=== PATIENT | male | born 1990 ===

== ENCOUNTER 2016-10-04 02:45 | Emergency (ER) | payer SELFPAY ==
[2016-10-04] MEDS: 0.9 % SODIUM CHLORIDE 1,000 ML IV ONE ×2 (02:55→03:43)
[2016-10-04 03:06] LABS: EOSINOPHILS % 2.2 % (0.0-6.8); MEAN CORPUSCULAR HEMOGLOBIN 29.9 pg (28.0-34.0); MEAN CORPUSCULAR VOLUME 89.4 fl (80.0-100.0); MONOCYTES % 2.9 % (0.0-11.0); NEUTROPHILS # 16.5 # k/uL (1.4-7.7)
[2016-10-04 03:07] LABS: BASOPHILS % 0.7 (0.0-1.5)
--- NOTE | 2016-10-04 03:16 | ED Physician Documentation ---
Overdose - HISTORIAN Historian: patient - HPI Chief Complaint: Overdose Onset: hours (0130) Further Comments: yes (26 year old male brought in via EMS after heroin overdose at approximately 0130. Friend called EMS due to patient not breathing. Patient given narcan in route.) - ROS CONST: none NEURO/PSYCH: none EYES/ENT: none CVS/RESP: none GI/: nausea, vomiting. denies: abdominal pain, problems urinating MS/SKIN/LYMPH: denies: joint pain, leg swelling, rash, swollen glands, ankle swelling, other - PAST HX Psychiatric problems: denies: bipolar disorder DVT/PE Risk Factors: none Surgical History: no surgical history Allergies/Adverse Reactions: Allergies Allergy/AdvReac Type Severity Reaction Status Date / Time No Known Allergies Allergy Verified 10/04/16 03:29 Home Medications: Ambulatory Orders Medication Instructions Recorded NK [NK] 10/04/16 - Social HX Smoking History: cigarettes Drug Use: heroin - Family HX Family HX: denies: other - REVIEWED ASSESSMENTS Nursing Assessment Reviewed: Yes Vitals Reviewed: Yes Progress - Progress Progress: On arrival patient obtunded, withdraws from painful stimuli ABG with Co2 66, patient more awake and alert. AAOx2, reoriented to place, MAEx4 , calm and cooperative. No neuro deficit noted. 0300 UDS not available at present, send out. PD at bedside. Patient reports snorting heroin, denies any other drug use, denies ETOH use. Reports being on probation for controlled substance possessions. From [place], in town working. [address] Jimenez at [facility], recommended 24 observation, will transfer to [facility]. Patient agrees with plan of care. - EKG/XRAY/CT EKG: rhythm (ST, rate 119) ED Results Lab/Radiology - Lab Results Lab Results: Lab Results 10/04/16 10/04/16 10/04/16 03:23 02:53 02:53 WBC RBC Hgb Hct MCV MCH MCHC RDW Plt Count Neut % (Auto) Lymph % (Auto) [place] % (Auto) Eos % (Auto) Baso % (Auto) Neut # (Auto) Lymph # (Auto) [place] # (Auto) Eos # (Auto) Baso # (Auto) Reactive Lymphs % Reactive Lymphs # Sodium Potassium Chloride Carbon Dioxide BUN Creatinine Est GFR ( Amer) Est GFR (Non-Af Amer) Glucose Calcium Total Bilirubin AST ALT Alkaline Phosphatase Creatine Kinase 81 U/L U/L (0-225) Troponin I 0.04 ng/mL ng/mL (0.03-0.06) Total Protein Albumin Acetaminophen < 10.0 ug/mL L ug/mL (10.0-30.0) Ethyl Alcohol 0.7 MG/DL MG/DL (<10.0) 10/04/16 10/04/16 02:51 02:51 WBC 20.45 K/ul H K/ul (4.00-12.00) RBC 5.33 M/ul H M/ul (3.90-5.20) Hgb 15.9 g/dL g/dL (12.0-18.0) Hct 47.7 % % (37.0-53.0) MCV 89.4 fl fl (80.0-100.0) MCH 29.9 pg pg (28.0-34.0) MCHC 33.5 g/dL g/dL (30.0-36.0) RDW 12.5 % % (11.3-14.3) Plt Count 313 K/mm3 K/mm3 (130-400) Neut % (Auto) 80.9 % H % (39.0-79.0) Lymph % (Auto) 12.8 % L % (16.0-50.0) [place] % (Auto) 2.9 % % (0.0-11.0) Eos % (Auto) 2.2 % % (0.0-6.8) Baso % (Auto) 0.7 (0.0-1.5) Neut # (Auto) 16.5 # k/uL H # k/uL (1.4-7.7) Lymph # (Auto) 2.6 # k/uL # k/uL (0.6-4.0) [place] # (Auto) 0.6 # k/uL # k/uL (0.0-0.9) Eos # (Auto) 0.5 # k/uL # k/uL (0.0-0.6) Baso # (Auto) 0.1 # k/uL # k/uL (0.0-0.5) Reactive Lymphs % 0.5 % % (0.0-5.0) Reactive Lymphs # 0.1 # k/uL # k/uL (0.0-0.8) Sodium 139 mmol/L mmol/L (136-145) Potassium 3.5 mmol/L mmol/L (3.5-5.0) Chloride 106 mmol/L mmol/L (98-110) Carbon Dioxide 26 mmol/L mmol/L (20-32) BUN 18 mg/dL mg/dL (10-26) Creatinine 1.3 mg/dL mg/dL (0.4-1.5) Est GFR ( Amer) > 60 (60 - ) Est GFR (Non-Af Amer) > 60 (60 - ) Glucose 244 mg/dL H mg/dL (70-99) Calcium 9.6 mg/dL mg/dL (8.5-10.5) Total Bilirubin 0.3 mg/dL mg/dL (0.2-1.2) AST 24 U/L U/L (0-41) ALT 44 U/L U/L (0-45) Alkaline Phosphatase 93 U/L U/L (46-116) Creatine Kinase Troponin I Total Protein 8.4 g/dL g/dL (6.0-8.5) Albumin 5.2 g/dL g/dL (3.0-5.5) Acetaminophen Ethyl Alcohol - Radiology Radiology Impressions: Chest - one-view Clinical history: Respiratory distress. Findings: Examination of the chest in single portable AP view 10/04/2016 0310 hours with no prior films for comparison demonstrates the lungs to be clear. The cardiovascular and mediastinal silhouettes are within normal limits. The bony thorax is intact. Impression: 1. Negative chest. Electronically signed on Oct 04, 2016 3:34:44 AM CDT by: Rico Loza - Orders Orders: ED Orders Category Date Time Status Place IV Lock 1T Care 10/04/16 02:54 Active CHEST 1 VIEW [RAD] Stat Exams 10/04/16 03:05 Completed ACETAMINOPHEN LEVEL Stat Lab 10/04/16 02:53 Completed ARTERIAL BLOOD GAS Stat Lab 10/04/16 02:54 Ordered CBC AUTO DIFF Routine Lab 10/04/16 02:51 Completed CMP Routine Lab 10/04/16 02:51 Completed CREATINE KINASE Stat Lab 10/04/16 02:53 Completed ETHANOL MEDICAL USE ONLY Stat Lab 10/04/16 02:53 Completed SALICYLATE LEVEL Stat Lab 10/04/16 02:53 Received TROPONIN I (cTnI) Stat Lab 10/04/16 03:23 Completed Urine drug screen [DRUG SCREEN URINE MEDICAL ONLY] Stat Lab 10/04/16 Ordered 0.9 % Sodium Chloride [Normal Saline] 1,000 ml Med 10/04/16 02:54 Discontinued IV NOW 0.9 % Sodium Chloride [Normal Saline] 1,000 ml Med 10/04/16 03:31 Discontinued IV NOW EKG WITH COMPARISON Stat Ther 10/04/16 02:55 Ordered Overdose Physical Exam - Physical Exam General Appearance: obtunded ENT: nml ENT inspection, nml gag reflex Eyes: PERRL, nystagmus Mental Status: disoriented Suicide Attempts: denies Respiratory: no resp distress, chest non-tender, breath sounds normal, other ( NRBM mask at 100%, sat 97%; RR 16-18) CVS: heart sounds normal, equal pulses, no murmur, no gallop, PMI nml, no JVD, no friction rub, tachycardia Abdomen: non-tender, no organomegaly, nml bowel sounds, no distention Skin: normal color, warm/dry, NR, INT, PAL, DR Extremities: non-tender, normal range of motion, no evidence of injury, no edema , J, 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
[2016-10-04 03:20] LABS: eGFR (African) > 60; eGFR (Non-African) > 60
--- NOTE | 2016-10-04 03:38 | Diagnostic Imaging Report ---
JAYA MORENO (AUTOMOTIVE REPAIR TECHNICIAN) - ER [facility] [address] [facility].[address] [id number] Report Submission Date: Oct 04, 2016 3:34:44 AM CDT Patient Study Name: JOSE TABARES Date: Oct 04, 2016 3:10:11 AM CDT Modality Type: CR Gender: M Description: CHEST : 89 Institution: [facility] Physician: JAYA MORENO (DANIEL) - ER Chest - one-view Clinical history: Respiratory distress. Findings: Examination of the chest in single portable AP view 10/04/2016 0310 hours with no prior films for comparison demonstrates the lungs to be clear. The cardiovascular and mediastinal silhouettes are within normal limits. The bony thorax is intact. Impression: 1. Negative chest. Electronically signed on Oct 04, 2016 3:34:44 AM CDT by: Rico SCALES
[2016-10-04 05:33] VITALS: BP 114/70
[2016-10-05 08:32] LABS: ABG BASE EXCESS -1.3 (-2 - +2); ABG PH 7.23 (7.35-7.45)
== END 2016-10-04 05:15 | disposition short-term general hospital (02) ==
LOC: ED 02:45
DX: T40.1X1A Poisoning by heroin, accidental (unintentional), initial encounter (principal); X58.XXXA Exposure to other specified factors, initial encounter; Y93.9 Activity, unspecified; Y99.9 Unspecified external cause status
CPT/HCPCS: 71010; 80053; 80302; 80304; 80320; 82550; 84484; 85025; J7030; 36600; 82803; 96360; 99284; G0477; G0479; G0480